=== PATIENT | female | born 1955 | race Caucasian/White ===

== ENCOUNTER → 2016-11-21 | Outpatient (CLI) | payer OTHER ==
[~2016-11-21] MED LIST: ATEN1TAB4 PO; GABA100C PO; GLIM1TAB PO; LISI-556 PO; LORA2TAB PO; TRAM-42 PO
--- NOTE | 2016-11-21 11:00 | Diagnostic Imaging Report ---
INDICATION: Focal upper left arm swelling. DISCUSSION: Limited targeted sonographic evaluation of the soft tissues within the upper left arm in region of swelling was performed. There is no underlying sonographic abnormality such as a mass or abnormal fluid collection identified. No soft tissue edema identified. IMPRESSION: 1. No sonographic abnormality identified within the upper left arm to explain swelling. Dictated by: Dictated on workstation # [id number]
--- NOTE | 2016-11-21 11:39 | Diagnostic Imaging Report ---
INDICATION: Left upper arm mass. 3 views of the left shoulder show no fracture, dislocation, or other acute abnormalities. IMPRESSION: Negative left shoulder. Dictated by: Dictated on workstation # [id number]
== END ==
LOC: RAD 10:01
PROVIDERS: ATTEND Surgery
DX: R22.32 Localized swelling, mass and lump, left upper limb (principal)
CPT/HCPCS: 73030; 76881

== ENCOUNTER 2017-01-25 13:38 | Emergency (ER) | payer SELFPAY ==
[~2017-01-25] VITALS: Ht 149.9 cm; Wt 65.3 kg
[2017-01-25] MEDS ORDERED: RT-ALBUTEROL/IPRATROPIUM 3 ML (DUONEB) VIAL INH ONE (13:45)
[2017-01-25] MEDS ORDERED: methylPREDNISolone 125 MG (Solu-MEDROL) VIAL IVP ONE (13:45)
--- NOTE | 2017-01-25 13:49 | ED General ---
General Stated Complaint: SUICIDAL,DIFFICULTY BREATHING Source of Information: Patient, EMS Exam Limitations: No Limitations History of Present Illness Time Seen by Provider: 13:46 Initial Comments To ER per EMS from home with reports of difficulty breathing. This began one week ago after she overdosed intentionally on her Seroquel. She states the police were called to the house but they drug her back inside and did not call EMS. Since then she's had difficulty swallowing and breathing . Today on scene EMS spent nearly 30 minutes trying to convince the patient to come to the hospital. Ultimately she agreed but during the 30 minute stay she reportedly smoked 3 different cigarettes. She also had "a beer" while she was talking with him. She reports that she's not used any substances other than prescribed for the past week since the initial overdose. patient advises me upon arrival to ER however that she does not want to kill herself and has no intention of doing this. Timing/Duration: 1 Week Severity: Moderate Allergies and Home Medications Allergies Coded Allergies: No Known Drug Allergies (Unverified , 06/18/15) Home Medications Atenolol/Chlorthalidone 1 Each Tablet, 1 EACH PO DAILY, (Reported) Gabapentin 100 Mg Capsule, 100 MG PO TID, (Reported) Glimepiride 1 Mg Tablet, 1 MG PO DAILY, (Reported) Lisinopril 5 Mg Tablet, 5 MG PO DAILY, (Reported) Lorazepam 2 Mg Tablet, 2 MG PO TID, (Reported) Pregabalin 50 Mg Capsule, #90 (Reported) Tramadol HCl 50 Mg Tablet, 50 MG PO Q6H PRN for PAIN, #10 Prescribed by: GENIE GODINEZ on 09/14/15 1225 Constitutional: see HPI EENTM: see HPI Respiratory: no symptoms reported Cardiovascular: no symptoms reported Genitourinary: no symptoms reported Musculoskeletal: no symptoms reported Skin: no symptoms reported Psychiatric/Neurological: No Symptoms Reported Hematologic/Lymphatic: No Symptoms Reported Immunological/Allergic: no symptoms reported Past Ctldsah-Wiyigk-Qssxrp Hx Immunizations Up To Date Tetanus Booster (TDap): Unknown Seasonal Allergies Seasonal Allergies: No Surgeries HX Surgeries: Yes Respiratory Hx Respiratory Disorders: No Cardiovascular Hx Cardiac Disorders: No Neurological Hx Neurological Disorders: Yes Neurological Disorders: Neuropathy Reproductive System Hx Reproductive Disorders: No Genitourinary Hx Genitourinary Disorders: No Gastrointestinal Hx Gastrointestinal Disorders: No Endocrine Endocrine Disorders: Diabetes, Non-Insulin dep HEENT HX ENT Disorders: No Cancer Hx Cancer: No Psychosocial Hx Psychiatric Problems: No Integumentary HX Skin/Integumentary Disorder: No Blood Transfusions Hx Blood Disorders: No Family Medical History Family Medial History: Cardiovascular disease 19 FATHER G8 BROTHER Diabetes mellitus 19 FATHER Hypertension 19 FATHER 19 MOTHER Physical Exam Vital Signs Vital Sign - Last 12Hours 01/25/17 01/25/17 13:38 13:56 Temp 97.0 Pulse 105 Resp 18 B/P (MAP) 144/112 Pulse Ox 97 O2 Delivery Room Air Capillary Refill : General Appearance: No Apparent Distress, WD/WN, Other (chronically ill, appears older than stated age. Very hoarse raspy voice, minimal stridor but speaks constantly and in full sentences. ) Eyes: Bilateral Eye EOMI, Bilateral Eye Normal Inspection, Bilateral Eye PERRL HEENT: PERRL/EOMI, TMs Normal, Pharynx Normal, Other (she is very hoarse) Neck: Full Range of Motion, Normal Inspection Respiratory: Normal Breath Sounds, No Accessory Muscle Use, No Respiratory Distress, Other (she does have a very hoarse voice but talks nearly nonstop in full sentences) Cardiovascular: Regular Rate, Rhythm, Normal Peripheral Pulses Gastrointestinal: Non Tender, Soft Neurologic/Psychiatric: Alert, Oriented x3, Other (adamantly denies suicidal or homicidal thoughts to me. States she just needs something to help her relax. ) Progress/Results/Core Measures Results/Orders Lab Results Laboratory Tests Test 01/25/17 13:53 01/25/17 16:06 Range/Units White Blood Count 7.2 4.3-11.0 10^3/uL Red Blood Count 4.37 4.35-5.85 10^6/uL Hemoglobin 13.8 11.5-16.0 G/DL Hematocrit 41 35-52 % Mean Corpuscular Volume 95 80-99 FL Mean Corpuscular Hemoglobin 32 25-34 PG Mean Corpuscular Hemoglobin Concent 33 32-36 G/DL Red Cell Distribution Width 13.0 10.0-14.5 % Platelet Count 256 130-400 10^3/uL Mean Platelet Volume 9.9 7.4-10.4 FL Neutrophils (%) (Auto) 55 42-75 % Lymphocytes (%) (Auto) 31 12-44 % Monocytes (%) (Auto) 11 0-12 % Eosinophils (%) (Auto) 3 0-10 % Basophils (%) (Auto) 0 0-10 % Neutrophils # (Auto) 4.0 1.8-7.8 X 10^3 Lymphocytes # (Auto) 2.2 1.0-4.0 X 10^3 Monocytes # (Auto) 0.8 0.0-1.0 X 10^3 Eosinophils # (Auto) 0.2 0.0-0.3 10^3/uL Basophils # (Auto) 0.0 0.0-0.1 10^3/uL Sodium Level 139 135-145 MMOL/L Potassium Level 3.8 3.6-5.0 MMOL/L Chloride Level 103 98-107 MMOL/L Carbon Dioxide Level 28 21-32 MMOL/L Anion Gap 8 5-14 MMOL/L Blood Urea Nitrogen 11 7-18 MG/DL Creatinine 0.73 0.60-1.30 MG/DL Estimat Glomerular Filtration Rate > 60 BUN/Creatinine Ratio 15 Glucose Level 119 H 70-105 MG/DL Calcium Level 9.4 8.5-10.1 MG/DL Total Bilirubin 0.3 0.1-1.0 MG/DL Aspartate Amino Transf (AST/SGOT) 36 H 5-34 U/L Alanine Aminotransferase (ALT/SGPT) 47 0-55 U/L Alkaline Phosphatase 105 40-136 U/L Total Protein 7.3 6.4-8.2 GM/DL Albumin 4.1 3.2-4.5 GM/DL Salicylates Level < 5.0 L 5.0-20.0 MG/DL Acetaminophen Level < 10 L 10-30 UG/ML Serum Alcohol 191 H <10 MG/DL Urine Color YELLOW Urine Clarity SLIGHTLY CLOUDY Urine pH 6 5-9 Urine Specific [place] 1.015 L 1.016-1.022 Urine Protein NEGATIVE NEGATIVE Urine Glucose (UA) NEGATIVE NEGATIVE Urine Ketones NEGATIVE NEGATIVE Urine Nitrite NEGATIVE NEGATIVE Urine Bilirubin NEGATIVE NEGATIVE Urine Urobilinogen NORMAL NORMAL MG/DL Urine Leukocyte Esterase NEGATIVE NEGATIVE Urine RBC (Auto) NEGATIVE NEGATIVE Urine RBC NONE /HPF Urine WBC RARE /HPF Urine Squamous Epithelial Cells RARE /HPF Urine Crystals NONE /LPF Urine Bacteria TRACE /HPF Urine Casts NONE /LPF Urine Mucus NEGATIVE /LPF Urine Culture Indicated NO My Orders Orders - GENIE GODINEZ RECREATION WORKER Cbc With Automated Diff (01/25/17 13:45) Alcohol (01/25/17 13:45) Salicylate (01/25/17 13:45) Acetaminophen (01/25/17 13:45) Comprehensive Metabolic Panel (01/25/17 13:45) Albuterol/Ipra Inhalation Soln (Duoneb I (01/25/17 13:45) Methylprednisolone Sod Succ (Solu-Medrol (01/25/17 13:45) Svn Sm Volume Nebulizer Rt-Rfs (01/25/17 13:45) Ua Culture If Indicated (01/25/17 13:45) Drug Screen Stat (Urine) (01/25/17 13:45) Ekg Tracing (01/25/17 13:54) Diphenhydramine Injection (Benadryl Inje (01/25/17 14:00) Ct Neck/Chest W (01/25/17 14:06) Metoprolol Tartrate Injection (Lopressor (01/25/17 14:15) Saline Lock/Iv-Start (01/25/17 14:09) Iohexol Injection (Omnipaque 350 Mg/Ml 1 (01/25/17 14:15) Ns (Ivpb) (Sodium Chloride 0.9% Ivpb Bag (01/25/17 14:15) Iohexol Injection (Omnipaque 350 Mg/Ml 1 (01/25/17 15:00) Sodium Chloride Flush (Catheter Flush Sy (01/25/17 15:00) Ns (Ivpb) (Sodium Chloride 0.9% Ivpb Bag (01/25/17 15:00) Rt Epinephrine (Racemic Epinephrine 2.25 (01/25/17 16:30) Medications Given in ED Current Medications Medications Dose Ordered Sig/Flynn Route Start Time Stop Time Status Last Admin Dose Admin Albuterol/ Ipratropium 3 ml ONCE ONCE INH 01/25/17 13:45 01/25/17 13:46 DC 01/25/17 13:56 3 ML Diphenhydramine HCl 25 mg ONCE ONCE IVP 01/25/17 14:00 01/25/17 14:01 DC 01/25/17 14:06 25 MG Iohexol 100 ml ONCE ONCE IV 01/25/17 14:15 01/25/17 14:16 DC 01/25/17 15:03 100 ML Iohexol 100 ml ONCE ONCE IV 01/25/17 15:00 01/25/17 15:01 DC 01/25/17 15:20 100 ML Methylprednisolone Sodium Succinate 125 mg ONCE ONCE IVP 01/25/17 13:45 01/25/17 13:46 DC 01/25/17 14:06 125 MG Metoprolol Tartrate 5 mg ONCE ONCE IV 01/25/17 14:15 01/25/17 14:16 DC 01/25/17 14:18 5 MG Sodium Chloride 100 ml ONCE ONCE IV 01/25/17 14:15 01/25/17 14:16 DC 01/25/17 15:03 80 ML Vital Signs/I&O Vital Sign - Last 12Hours 01/25/17 01/25/17 01/25/17 13:38 13:56 16:18 Temp 97.0 Pulse 105 72 Resp 18 18 B/P (MAP) 144/112 135/88 Pulse Ox 97 98 O2 Delivery Room Air Room Air Room Air Diagnostic Imaging Diagonstic Imaging: CT Comments NAME: SABRINA [facility] MED REC#: [id number] PT STATUS: REG ER : 1955 PHYSICIAN: GENIE GODINEZ APRN ADMIT DATE: 01/25/17/ER Draft Date of Exam:01/25/17 CT NECK/CHEST W EXAMINATION: CT of the neck and chest performed with intravenous contrast with axial and coronal reconstructions. 100 mL of Omnipaque 350 was administered intravenously. INDICATION: Difficulty breathing. Hoarseness of voice. FINDINGS: CT NECK: There is a lobulated hypodense lesion seen in the subglottic larynx that appear to be pedunculated and attached to the right wall of the subglottic larynx. It is abutting the undersurface of the vocal cords and results in significant narrowing of the airway in the sub-glottic region. It partially bulges into the space between the vocal cords which are perhaps the slightly edematous as well as the false vocal cords. There is no definite enhancement. The measurement of this lesion is 1.2 cm anteroposteriorly x 0.8 cm transversely x 0.7 cm craniocaudally. Differential may include a lymphatic malformation or a polyp based on the low density. Debris, secretions, foreign body or tumor are less likely possibilities. The oropharynx and nasopharynx appear unremarkable. The parotid and submandibular glands appear symmetric. Vascular enhancement in the carotid arteries and jugular veins appear normal. The osseous structures demonstrate degenerative changes in the mid to lower cervical spine. CT CHEST: The lungs demonstrate no significant consolidation or mass. The heart size is normal. No pericardial or pleural effusion. The thoracic aorta is normal in caliber. Remnant of the thymus or mild thymic hyperplasia is suggested in the anterior mediastinum with no other mass or significantly enlarged mediastinal lymph nodes. No lymphadenopathy in the john or axilla. Sections in the upper abdomen appear grossly unremarkable. The osseous structures appear grossly unremarkable. IMPRESSION: 1. CT neck: There is an indeterminate hypodense subglottic hypodense mass which appears to be abutting the right wall of the subglottic larynx and also abutting the undersurface of the vocal cords which appears to be slightly edematous. There is significant narrowing of the airway at this level. ENT evaluation is recommended. The hypodensity may suggest lymphatic malformation, cystic lesion or a polyp. 2. CT chest: No significant abnormality. Genie Godinez, the physician nurses medical assistants phlebotomists taking care of the patient, was called and informed of the findings in the supraglottic larynx. Urgent ENT evaluation is recommended. Dictated on workstation # [id number] Dict: 01/25/17 1542 Trans: 01/25/17 1608 PJ [id number] Interpreted by: ADAM DELONG MD Electronically signed by: Departure Communication Progress Notes 1610-I discussed the case with Dr. Bower who recommends transfer of patient to a tertiary care center. 1629-Dr Felder @ [facility] accepts patient from ENT standpoint to ER. Dr Estes ER physician accepted pt as well. Her BP is down to 135/76. O2 98% room air. Impression Impression: Primary Impression: Laryngeal nodule Disposition: 01 HOME, SELF-CARE Condition: Stable Departure-Patient Inst. Referrals: DEBRA CALDERA MD (PCP) Primary Care Physician GENIE GODINEZ APRN Jan 25, 2017 13:49
[2017-01-25] MEDS ORDERED: diphenhydrAMINE 50 MG/ML INJ (BENADRYL) IVP ONE (14:00)
[2017-01-25 14:02] LABS: BASOPHILS % (AUTO) 0 % (0-10); EOSINOPHILS # (AUTO) 0.2 10^3/uL (0.0-0.3); EOSINOPHILS % (AUTO) 3 % (0-10); LYMPHOCYTES # (AUTO) 2.2 X 10^3 (1.0-4.0); LYMPHOCYTES % (AUTO) 31 % (12-44); MEAN CORPUSCULAR HEMOGLOBIN 32 PG (25-34); MEAN CORPUSCULAR HGB CONC 33 G/DL (32-36); MEAN CORPUSCULAR VOLUME 95 FL (80-99); MEAN PLATELET VOLUME 9.9 FL (7.4-10.4); MONOCYTES # (AUTO) 0.8 X 10^3 (0.0-1.0); MONOCYTES % (AUTO) 11 % (0-12); NEUTROPHILS % (AUTO) 55 % (42-75); PLATELET COUNT 256 10^3/uL (130-400); RED BLOOD COUNT 4.37 10^6/uL (4.35-5.85); WHITE BLOOD COUNT 7.2 10^3/uL (4.3-11.0)
[2017-01-25] MEDS ORDERED: IOHEXOL 350 MG/ML 100 ML (OMNIPAQUE 350) VIAL IV ONE ×2 (14:15→15:00)
[2017-01-25] MEDS ORDERED: meTOprolol 5 MG/5 ML (LOPRESSOR) VIAL IV ONE (14:15)
[2017-01-25] MEDS ORDERED: NS 100 ML (IVPB) BAG IV ONE ×2 (14:15→15:00)
[2017-01-25 14:29] LABS: ALANINE AMINOTRANSFERASE 47 U/L (0-55); ALBUMIN 4.1 GM/DL (3.2-4.5); ALCOHOL 191 MG/DL (<10); ANION GAP 8 MMOL/L (5-14); ASPARTATE AMINO TRANSFERASE 36 U/L (5-34); BILIRUBIN,TOTAL 0.3 MG/DL (0.1-1.0); BLOOD UREA NITROGEN 11 MG/DL (7-18); BUN/CREATININE RATIO 15; CALCIUM 9.4 MG/DL (8.5-10.1); CARBON DIOXIDE 28 MMOL/L (21-32); CHLORIDE 103 MMOL/L (98-107); CREATININE SERUM 0.73 MG/DL (0.60-1.30); GFR ESTIMATED > 60; GLUCOSE 119 MG/DL (70-105); POTASSIUM 3.8 MMOL/L (3.6-5.0); SALICYLATE < 5.0 MG/DL (5.0-20.0); SODIUM 139 MMOL/L (135-145); TOTAL PROTEIN 7.3 GM/DL (6.4-8.2)
[2017-01-25] MEDS ORDERED: PREG50CA2 (14:30)
[2017-01-25 14:38] LABS: ACETAMINOPHEN < 10 UG/ML (10-30)
[2017-01-25] MEDS ORDERED: CATHETER FLUSH 10 ML SYR IV PRN (15:00)
--- NOTE | 2017-01-25 16:08 | Diagnostic Imaging Report ---
EXAMINATION: CT of the neck and chest performed with intravenous contrast with axial and coronal reconstructions. 100 mL of Omnipaque 350 was administered intravenously. INDICATION: Difficulty breathing. Hoarseness of voice. FINDINGS: CT NECK: There is a lobulated hypodense lesion seen in the subglottic larynx that appear to be pedunculated and attached to the right wall of the subglottic larynx. It is abutting the undersurface of the vocal cords and results in significant narrowing of the airway in the sub-glottic region. It partially bulges into the space between the vocal cords which are perhaps the slightly edematous as well as the false vocal cords. There is no definite enhancement. The measurement of this lesion is 1.2 cm anteroposteriorly x 0.8 cm transversely x 0.7 cm craniocaudally. Differential may include a lymphatic malformation or a polyp based on the low density. Debris, secretions, foreign body or tumor are less likely possibilities. The oropharynx and nasopharynx appear unremarkable. The parotid and submandibular glands appear symmetric. Vascular enhancement in the carotid arteries and jugular veins appear normal. The osseous structures demonstrate degenerative changes in the mid to lower cervical spine. CT CHEST: The lungs demonstrate no significant consolidation or mass. The heart size is normal. No pericardial or pleural effusion. The thoracic aorta is normal in caliber. Remnant of the thymus or mild thymic hyperplasia is suggested in the anterior mediastinum with no other mass or significantly enlarged mediastinal lymph nodes. No lymphadenopathy in the john or axilla. Sections in the upper abdomen appear grossly unremarkable. The osseous structures appear grossly unremarkable. IMPRESSION: 1. CT neck: There is an indeterminate hypodense subglottic mass which is abutting the right wall of the subglottic larynx and also abutting the undersurface of the vocal cords, that appear slightly edematous. There is significant narrowing of the airway at this level. ENT evaluation is recommended. The hypodensity may suggest lymphatic malformation, cystic lesion or a polyp. 2. CT chest: No significant abnormality. Maxi Godinez, the physician credit control assistant taking care of the patient, was called and informed of the findings in the subglottic larynx. Urgent ENT evaluation is recommended. Dictated by: Dictated on workstation # [id number]
[2017-01-25 16:16] LABS: BILIRUBIN,URINE NEGATIVE (NEGATIVE); KETONES,URINE NEGATIVE (NEGATIVE); LEUKOCYTE ESTERASE ,URINE NEGATIVE (NEGATIVE); NITRITE,URINE NEGATIVE (NEGATIVE); PH,URINE 6 (5-9); PROTEIN,URINE NEGATIVE (NEGATIVE); UROBILINOGEN,URINE NORMAL (NORMAL)
[2017-01-25 16:18] VITALS: BP 135/88
[2017-01-25 16:23] LABS: WBC,URINE RARE /HPF
[2017-01-25 16:24] LABS: SQUAMOUS EPITHELIAL CELL,UR RARE /HPF
[2017-01-25] MEDS ORDERED: RT-epiNEPHrine (RACEMIC) 2.25% 0.5 ML VIAL INH ONE (16:30)
[2017-01-25 17:14] VITALS: BP 155/54
== END 2017-01-25 17:13 | disposition short-term general hospital (02) ==
LOC: EDUNIT# 13:38 → ER 13:39
DX: J38.7 Other diseases of larynx (principal); E11.42 Type 2 diabetes mellitus with diabetic polyneuropathy; F17.210 Nicotine dependence, cigarettes, uncomplicated
CPT/HCPCS: 36415; 70491; 71260; 80053; 80306; 80320; 80329; 81000; 85025; 93005; 94640; 96374; 96375

== ENCOUNTER 2019-01-14 13:08 | Emergency (ER) | payer SELFPAY ==
[~2019-01-14] VITALS: Ht 149.9 cm; Wt 65.3 kg
[~2019-01-14 13:08] MED LIST changes: +PREG50CA2
--- NOTE | 2019-01-14 13:41 | ED Upper Extremity ---
General Chief Complaint: Upper Extremity Stated Complaint: LT SHOULDER DISLOCATED Nursing Triage Note: PT STATES HAVING A LT SHOULDER DIS-LOCATED SINCE SUNDAY. PT SLIPPED IN HER KITCHEN. PT IN SLING AND SWOTH ON ARRIVAL. STATES NO SLEEP. PT WAS GIVEN A SHOT BUT NO PAIN PILLS. Nursing Sepsis Screen: No Definite Risk Source: patient Exam Limitations: no limitations History of Present Illness Date Seen by Provider: Jan 14, 2019 Time Seen by Provider: 13:40 Initial Comments To ER by private vehicle from [facility] he presented with left shoulder pain after she fell on Sunday01/11/19. She had just mopped her kitchen floor was slick and she fell. X-rays done at [facility] revealed a left shoulder dislocation anteriorly. Onset: just prior to arrival Severity: moderate Pain/Injury Location: left shoulder Method of Injury: fell Modifying Factors: Worse With Movement Allergies and Home Medications Allergies Coded Allergies: No Known Drug Allergies (Unverified , 06/18/15) Home Medications Atenolol/Chlorthalidone 1 Each Tablet, 1 EACH PO DAILY, (Reported) Gabapentin 100 Mg Capsule, 100 MG PO TID, (Reported) Glimepiride 1 Mg Tablet, 1 MG PO DAILY, (Reported) Hydrocodone/Acetaminophen 1 Each Tablet, 1 TAB PO Q4-6HR Prescribed by: GENIE FAIRBANKS on 01/14/19 1357 Lisinopril 5 Mg Tablet, 5 MG PO DAILY, (Reported) Lorazepam 2 Mg Tablet, 2 MG PO TID, (Reported) Tramadol HCl 50 Mg Tablet, 50 MG PO Q6H PRN for PAIN Prescribed by: GENIE FAIRBANKS on 09/14/15 1225 Patient Home Medication List Home Medication List Reviewed: Yes Review of Systems Constitutional: see HPI EENTM: see HPI Respiratory: no symptoms reported Cardiovascular: no symptoms reported Genitourinary: no symptoms reported Musculoskeletal: see HPI Skin: no symptoms reported Psychiatric/Neurological: No Symptoms Reported Past Kfqounj-Ktpdug-Digopu Hx Patient Social History Alcohol Use: Occasionally Uses Recreational Drug Use: No Smoking Status: Current Everyday Smoker Type Used: Cigarettes 2nd Hand Smoke Exposure: Yes Recent Foreign Travel: No Contact w/Someone Who Travel: No Recent Infectious Disease Expo: No Immunizations Up To Date Tetanus Booster (TDap): Unknown Seasonal Allergies Seasonal Allergies: No Past Medical History Surgeries: Yes Respiratory: No Cardiac: No Neurological: Yes Neuropathy Reproductive Disorders: No Gastrointestinal: No Diabetes, Non-Insulin dep Cancer: No Psychosocial: No Integumentary: No Blood Disorders: No Family Medical History Cardiovascular disease 19 FATHER G8 BROTHER Diabetes mellitus 19 FATHER Hypertension 19 FATHER 19 MOTHER Physical Exam Vital Signs Vital Signs - First Documented 01/14/19 13:21 Temp 98.5 Pulse 114 Resp 22 B/P (MAP) 188/123 (144) Pulse Ox 98 O2 Delivery Room Air Capillary Refill : Less Than 3 Seconds Height, Weight, BMI Height: 4'11.00" Weight: 144lbs. oz. 65.778199ny; 28.68 BMI Method:Stated General Appearance: WD/WN, no apparent distress HEENT: PERRL/EOMI, normal ENT inspection Respiratory: no respiratory distress, no accessory muscle use Gastrointestinal: normal bowel sounds, non tender Shoulder: normal inspection, limited ROM (limited abduction. Strong radial pulse. Normal sensation of the fingertips.) Elbow/Forearm: normal inspection, non-tender Wrist: Yes normal inspection, Yes non-tender Neurologic/Psychiatric: alert, normal mood/affect, oriented x 3 Skin: normal color, warm/dry Does have some mild numbness over the deltoid she states. Procedures/Interventions Splinting and Joint Reduction : Pre-Proc Neuro Vasc Exam: normal Post-Proc Neuro Vasc Exam: normal Joint Reduction Site: shoulder (L) Reduction Attempts: 1 Pre-Procedure NV Exam: Yes post joint reduction film: joint reduced Progress She does have films on a disc brought with her from [facility] showing an anterior dislocation of the left shoulder. I have reviewed these prior to starting. Progress/Results/Core Measures Results/Orders My Orders Orders - GENIE FAIRBANKS APRN Ed Iv/Invasive Line Start (01/14/19 13:29) Lactated Ringers (Lr 1000 Ml Iv Solution (01/14/19 13:45) Etomidate Injection (Amidate Injection) (01/14/19 13:45) Fentanyl Injection (Sublimaze Injection (01/14/19 13:45) Shoulder, Left, 1 View (01/14/19 13:32) Medications Given in ED Current Medications Medications Dose Ordered Sig/Flynn Route Start Time Stop Time Status Last Admin Dose Admin Etomidate 20 mg ONCE ONCE IV 01/14/19 13:45 01/14/19 13:46 DC 01/14/19 13:49 20 MG Fentanyl Citrate 50 mcg ONCE ONCE IVP 01/14/19 13:45 01/14/19 13:46 DC 01/14/19 13:48 50 MCG Vital Signs/I&O 01/14/19 13:21 Temp 98.5 Pulse 114 Resp 22 B/P (MAP) 188/123 (144) Pulse Ox 98 O2 Delivery Room Air Blood Pressure Mean: 144 Departure Communication (Admissions) 1356-patient was given 50 g of fentanyl IV, 20 mg of etomidate IV. The shoulder was then very easily reduced. X-rays to confirm placement. She'll then be placed in a shoulder immobilizer and discharged home once she awakens. At this time she still snoring with stable vital signs on 2 L of supplemental oxygen. Impression Primary Impression: Dislocation of left shoulder joint Qualified Codes: S43.005A - Unspecified dislocation of left shoulder joint, initial encounter Disposition: HOME, SELF-CARE Condition: Stable Departure-Patient Inst. Decision time for Depature: 13:56 Referrals: DEBRA CALDERA MD (PCP) Primary Care Physician Patient Instructions: Shoulder Dislocation Add. Discharge Instructions: 1. Wear the immobilizer at all times except when showering for the next 1 week. Follow-up with [facility] for referral to orthopedics. Take the pain medication as directed. Return to ER for any concerns. All discharge instructions reviewed with patient and/or family. Voiced understanding. Scripts Hydrocodone/Acetaminophen ([place] 5-325 Tablet) 1 Each Tablet 1 TAB PO Q4-6HR for Pain MDD 10 TABS for 7 Days, #10 TAB Prov: GENIE FAIRBANKS APRN 01/14/19 GENIE FAIRBANKS APRN Jan 14, 2019 13:41
[2019-01-14] MEDS ORDERED: fentaNYL INJECTION 100 MCG/2 ML AMP IVP ONE (13:45)
[2019-01-14] MEDS ORDERED: ETOMIDATE IV SOLN 20 MG/10 ML VIAL IV ONE (13:45)
[2019-01-14] MEDS ORDERED: LACTATED RINGERS 1,000 ML IV SCH (13:45)
[2019-01-14] MEDS ORDERED: HYDR-4226 PO (13:57)
--- NOTE | 2019-01-14 14:13 | Diagnostic Imaging Report ---
INDICATION: Left shoulder dislocation. TIME OF EXAM: 01:58 p.m. FINDINGS: Single view of the left shoulder was obtained. Glenohumeral and acromioclavicular alignment appears normal. No fracture or dislocation is seen on this single view. IMPRESSION: No acute abnormality detected. Dictated by: Dictated on workstation # [id number]
[2019-01-14 16:49] VITALS: BP 177/87
== END 2019-01-14 14:36 | disposition home or self-care (01) ==
LOC: EDUNIT# 13:08 → ER 13:11
DX: S43.005A Unspecified dislocation of left shoulder joint, initial encounter (principal); E11.40 Type 2 diabetes mellitus with diabetic neuropathy, unspecified; F17.210 Nicotine dependence, cigarettes, uncomplicated; Z79.84 Long term (current) use of oral hypoglycemic drugs; Z82.49 Family history of ischemic heart disease and other diseases of the circulatory system; W01.0XXA Fall on same level from slipping, tripping and stumbling without subsequent striking against object, initial encounter; Y92.000 Kitchen of unspecified non-institutional (private) residence as the place of occurrence of the external cause
CPT/HCPCS: 73020; 96360

== ENCOUNTER 2019-04-10 14:24 | Emergency (ER) | payer OTHER ==
[~2019-04-10] VITALS: Ht 148.9 cm; Wt 65.5 kg
[~2019-04-10 14:24] MED LIST changes: +HYDR-4226 PO
--- NOTE | 2019-04-10 14:54 | ED General ---
General Stated Complaint: HIGH BP Source of Information: Patient Exam Limitations: No Limitations History of Present Illness Date Seen by Provider: Apr 10, 2019 Time Seen by Provider: 14:53 Initial Comments To ER per private vehicle with reports of high blood pressure and intermittent chest pain for the past 2-3 days, she stopped taking her lorazepam about a week ago. She feels very anxious and hasn't slept since. The pain is described as shooting pains lasting only a few seconds originating in the epigastric region and up into the right side of her chest. She cannot identify anything other than anxiety that seems to be contributing to these pains, no alleviating or exacerbating factors.She is not short of breath Allergies and Home Medications Allergies Coded Allergies: No Known Drug Allergies (Unverified , 06/18/15) Home Medications Atenolol/Chlorthalidone 1 Each Tablet, 1 EACH PO DAILY, (Reported) Gabapentin 100 Mg Capsule, 100 MG PO TID, (Reported) Glimepiride 1 Mg Tablet, 1 MG PO DAILY, (Reported) Hydrocodone/Acetaminophen 1 Each Tablet, 1 TAB PO Q4-6HR Prescribed by: GENIE FAIRBANKS on 01/14/19 1357 Hydroxyzine Pamoate 50 Mg Capsule, 50 MG PO TID PRN for ANXIETY Prescribed by: GENIE FAIRBANKS on 04/10/19 1614 Lisinopril 5 Mg Tablet, 5 MG PO DAILY, (Reported) Lorazepam 2 Mg Tablet, 2 MG PO TID, (Reported) Tramadol HCl 50 Mg Tablet, 50 MG PO Q6H PRN for PAIN Prescribed by: GENIE FAIRBANKS on 09/14/15 1225 Patient Home Medication List Home Medication List Reviewed: Yes Review of Systems Review of Systems Constitutional: see HPI EENTM: see HPI Respiratory: see HPI Cardiovascular: see HPI, chest pain Genitourinary: no symptoms reported Musculoskeletal: no symptoms reported Skin: no symptoms reported Psychiatric/Neurological: No Symptoms Reported Hematologic/Lymphatic: No Symptoms Reported Past Ybxdytk-Rsahoa-Kvdbbj Hx Patient Social History Type Used: Cigarettes 2nd Hand Smoke Exposure: Yes Immunizations Up To Date Tetanus Booster (TDap): Unknown Seasonal Allergies Seasonal Allergies: No Past Medical History Surgeries: Yes Respiratory: No Cardiac: No Neurological: Yes Neuropathy Reproductive Disorders: No Gastrointestinal: No Diabetes, Non-Insulin dep Cancer: No Psychosocial: No Integumentary: No Blood Disorders: No Family Medical History Cardiovascular disease 19 FATHER G8 BROTHER Diabetes mellitus 19 FATHER Hypertension 19 FATHER 19 MOTHER Physical Exam Vital Signs Vital Signs - First Documented 04/10/19 04/10/19 14:28 16:47 Temp 36.0 Pulse 70 Resp 18 B/P (MAP) 191/107 (135) Pulse Ox 95 O2 Delivery Room Air Capillary Refill : Height, Weight, BMI Height: 4'11.00" Weight: 144lbs. oz. 65.251902vd; 28.68 BMI Method:Stated General Appearance: No Apparent Distress, WD/WN, Anxious Eyes: Bilateral Eye Normal Inspection, Bilateral Eye PERRL, Bilateral Eye EOMI HEENT: Normal ENT Inspection Neck: Full Range of Motion, Normal Inspection Respiratory: Normal Breath Sounds, No Accessory Muscle Use, No Respiratory Distress Cardiovascular: Regular Rate, Rhythm, Normal Peripheral Pulses Gastrointestinal: Normal Bowel Sounds, Non Tender, Soft Extremity: Normal Capillary Refill, Normal Inspection Neurologic/Psychiatric: Alert, Oriented x3 Skin: Normal Color, Warm/Dry Progress/Results/Core Measures Suspected Sepsis SIRS Temperature: Pulse: Respiratory Rate: Laboratory Tests 04/10/19 15:00: White Blood Count 8.3 Blood Pressure / Mean: Laboratory Tests 04/10/19 15:00: Creatinine 0.74, INR Comment 0.9, Platelet Count 267, Total Bilirubin 0.3 Results/Orders Lab Results Laboratory Tests Test 04/10/19 15:00 Range/Units White Blood Count 8.3 4.3-11.0 10^3/uL Red Blood Count 4.46 4.35-5.85 10^6/uL Hemoglobin 14.1 11.5-16.0 G/DL Hematocrit 41 35-52 % Mean Corpuscular Volume 92 80-99 FL Mean Corpuscular Hemoglobin 32 25-34 PG Mean Corpuscular Hemoglobin Concent 34 32-36 G/DL Red Cell Distribution Width 12.8 10.0-14.5 % Platelet Count 267 130-400 10^3/uL Mean Platelet Volume 9.8 7.4-10.4 FL Neutrophils (%) (Auto) 63 42-75 % Lymphocytes (%) (Auto) 25 12-44 % Monocytes (%) (Auto) 9 0-12 % Eosinophils (%) (Auto) 4 0-10 % Basophils (%) (Auto) 1 0-10 % Neutrophils # (Auto) 5.2 1.8-7.8 X 10^3 Lymphocytes # (Auto) 2.0 1.0-4.0 X 10^3 Monocytes # (Auto) 0.7 0.0-1.0 X 10^3 Eosinophils # (Auto) 0.3 0.0-0.3 10^3/uL Basophils # (Auto) 0.1 0.0-0.1 10^3/uL Prothrombin Time 12.3 12.2-14.7 SEC INR Comment 0.9 0.8-1.4 Activated Partial Thromboplast Time 29 24-35 SEC D-Dimer 0.67 H 0.00-0.49 UG/ML Sodium Level 140 135-145 MMOL/L Potassium Level 3.8 3.6-5.0 MMOL/L Chloride Level 103 98-107 MMOL/L Carbon Dioxide Level 31 21-32 MMOL/L Anion Gap 6 5-14 MMOL/L Blood Urea Nitrogen 7 7-18 MG/DL Creatinine 0.74 0.60-1.30 MG/DL Estimat Glomerular Filtration Rate > 60 BUN/Creatinine Ratio 9 Glucose Level 123 H 70-105 MG/DL Calcium Level 9.1 8.5-10.1 MG/DL Corrected Calcium 9.0 8.5-10.1 MG/DL Magnesium Level 2.1 1.6-2.4 MG/DL Total Bilirubin 0.3 0.1-1.0 MG/DL Aspartate Amino Transf (AST/SGOT) 28 5-34 U/L Alanine Aminotransferase (ALT/SGPT) 35 0-55 U/L Alkaline Phosphatase 110 40-136 U/L Myoglobin 24.6 10.0-92.0 NG/ML Troponin I < 0.028 <0.028 NG/ML B-Type Natriuretic Peptide 116.5 H <100.0 PG/ML Total Protein 7.2 6.4-8.2 GM/DL Albumin 4.1 3.2-4.5 GM/DL Lipase 8 8-78 U/L My Orders Orders - GENIE FAIRBANKS APRN Cbc With Automated Diff (04/10/19 14:47) Magnesium (04/10/19 14:47) Chest 1 View, Ap/Pa Only (04/10/19 14:47) Ekg Tracing (04/10/19 14:47) Cardiac Profile 1 (04/10/19 14:47) Comprehensive Metabolic Panel (04/10/19 14:47) Myoglobin Serum (04/10/19 14:47) Protime With Inr (04/10/19 14:47) Partial Thromboplastin Time (04/10/19 14:47) O2 (04/10/19 14:47) Monitor-Rhythm Ecg Trace Only (04/10/19 14:47) Ed Iv/Invasive Line Start (04/10/19 14:47) Lipase (04/10/19 14:47) BNP (04/10/19 14:47) Aspirin Chewable Tablet (Baby Aspirin Ch (04/10/19 15:00) Lorazepam Injection (Ativan Injection) (04/10/19 15:00) Fibrin Degradation Products (04/10/19 15:28) Medications Given in ED Vital Signs/I&O Capillary Refill : Departure Communication (Admissions) 2556-just d-dimer is normal, feeling better. Impression Primary Impression: Anxiety Additional Impression: Chest pain Qualified Codes: R07.9 - Chest pain, unspecified Disposition: HOME, SELF-CARE Condition: Improved Departure-Patient Inst. Decision time for Depature: 16:12 Referrals: DEBRA CALDERA MD (PCP) Primary Care Physician NATANAEL EDOUARD MD FACP FACC CCDS Teresa CERVANTES MD, BASHAR J MD Patient Instructions: Chest Pain (DC) Add. Discharge Instructions: 1. Call a gaming department head of your choosing next week to make an appointment to be seen for follow-up. Return to ER for any concerns in the meantime. Scripts Hydroxyzine Pamoate (Vistaril) 50 Mg Capsule 50 MG PO TID PRN for ANXIETY, #10 CAP Prov: GENIE FAIRBANKS RENEWABLE ENERGY TECHNICIAN 04/10/19 GENIE FAIRBANKS RENEWABLE ENERGY TECHNICIAN Apr 10, 2019 14:54
[2019-04-10] MEDS ORDERED: ASPIRIN 81 MG CHEW (CHILDREN'S ASA) PO ONE (15:00)
[2019-04-10] MEDS ORDERED: LORazepam INJ 2 MG/ML (ATIVAN) VIAL IVP PRN (15:00)
[2019-04-10 15:04] LABS: BASOPHILS # (AUTO) 0.1 10^3/uL (0.0-0.1); BASOPHILS % (AUTO) 1 % (0-10); EOSINOPHILS # (AUTO) 0.3 10^3/uL (0.0-0.3); EOSINOPHILS % (AUTO) 4 % (0-10); HEMATOCRIT 41 % (35-52); HEMOGLOBIN 14.1 G/DL (11.5-16.0); LYMPHOCYTES % (AUTO) 25 % (12-44); MEAN CORPUSCULAR HEMOGLOBIN 32 PG (25-34); MEAN CORPUSCULAR HGB CONC 34 G/DL (32-36); MEAN CORPUSCULAR VOLUME 92 FL (80-99); MEAN PLATELET VOLUME 9.8 FL (7.4-10.4); MONOCYTES # (AUTO) 0.7 X 10^3 (0.0-1.0); MONOCYTES % (AUTO) 9 % (0-12); NEUTROPHILS # (AUTO) 5.2 X 10^3 (1.8-7.8); NEUTROPHILS % (AUTO) 63 % (42-75); PLATELET COUNT 267 10^3/uL (130-400); RED CELL DISTRIBUTION WIDTH 12.8 % (10.0-14.5); WHITE BLOOD COUNT 8.3 10^3/uL (4.3-11.0)
[2019-04-10 15:18] LABS: INR 0.9 (0.8-1.4); PROTHROMBIN TIME PATIENT 12.3 SEC (12.2-14.7)
[2019-04-10 15:24] LABS: ALANINE AMINOTRANSFERASE 35 U/L (0-55); ALBUMIN 4.1 GM/DL (3.2-4.5); ALKALINE PHOSPHATASE 110 U/L (40-136); BILIRUBIN,TOTAL 0.3 MG/DL (0.1-1.0); BUN/CREATININE RATIO 9; CALCIUM 9.1 MG/DL (8.5-10.1); CARBON DIOXIDE 31 MMOL/L (21-32); CHLORIDE 103 MMOL/L (98-107); CREATININE SERUM 0.74 MG/DL (0.60-1.30); GFR ESTIMATED > 60; GLUCOSE 123 MG/DL (70-105); LIPASE 8 U/L (8-78); MAGNESIUM 2.1 MG/DL (1.6-2.4); POTASSIUM 3.8 MMOL/L (3.6-5.0); SODIUM 140 MMOL/L (135-145); TOTAL PROTEIN 7.2 GM/DL (6.4-8.2)
--- NOTE | 2019-04-10 15:58 | Diagnostic Imaging Report ---
INDICATION: Chest pain. COMPARISON: None. FINDINGS: Single frontal view of the chest demonstrates normal heart size and pulmonary vascularity. The lungs are well aerated and clear. No large pleural effusion or pneumothorax is seen. The visualized osseous structures show no acute abnormalities. IMPRESSION: 1. No acute cardiopulmonary process. Dictated by: Dictated on workstation # [id number]
[2019-04-10] MEDS ORDERED: HYDR50CA PO (16:14)
[2019-04-10 16:47] VITALS: BP 107/67
== END 2019-04-10 16:47 | disposition home or self-care (01) ==
LOC: EDUNIT# 14:24 → ER 14:26
DX: F41.9 Anxiety disorder, unspecified (principal); R07.9 Chest pain, unspecified; E11.40 Type 2 diabetes mellitus with diabetic neuropathy, unspecified; Z77.22 Contact with and (suspected) exposure to environmental tobacco smoke (acute) (chronic); Z82.49 Family history of ischemic heart disease and other diseases of the circulatory system
CPT/HCPCS: 36415; 71045; 80053; 83690; 83735; 83874; 83880; 84484; 85025; 85379; 85610; 85730; 93005; 93041

== ENCOUNTER 2019-05-27 20:58 | Emergency (ER) | payer SELFPAY ==
[~2019-05-27] VITALS: Ht 148.9 cm; Wt 65.5 kg
[~2019-05-27 20:58] MED LIST changes: +HYDR50CA PO
[2019-05-27] MEDS ORDERED: TETANUS,DIPTH,PERTUSS P/F (BOOSTRIX) 0.5 ML VIAL IM ONE (21:15)
[2019-05-27] MEDS ORDERED: LIDOCAINE 1% INJ 20 ML 20 ML VIAL INJ ONE (21:15)
[2019-05-27] MEDS ORDERED: SULF1TAB35 PO ×2 (21:20→22:26)
--- NOTE | 2019-05-27 21:20 | ED Integumentary General ---
General Stated Complaint: RT HAND LAC Source: patient Exam Limitations: intoxication (mild-mod etoh) History of Present Illness Date Seen by Provider: May 27, 2019 Time Seen by Provider: 21:05 Initial Comments Patient presents to ER by private conveyance with chief complaint of having cut her hand with a knife tonight. She has been drinking beer tonight. She called EMS came out and rest her hand but she refused transport and decided to come in on her own. Her significant other drove her here. She thinks is been more than 5 years since she had a tetanus vaccination. Allergies and Home Medications Allergies Coded Allergies: No Known Drug Allergies (Unverified , 06/18/15) Home Medications Atenolol/Chlorthalidone 1 Each Tablet, 1 EACH PO DAILY, (Reported) Gabapentin 100 Mg Capsule, 100 MG PO TID, (Reported) Glimepiride 1 Mg Tablet, 1 MG PO DAILY, (Reported) Hydrocodone/Acetaminophen 1 Each Tablet, 1 TAB PO Q4-6HR Prescribed by: GENIE FAIRBANKS on 01/14/19 1357 Hydroxyzine Pamoate 50 Mg Capsule, 50 MG PO TID PRN for ANXIETY Prescribed by: GENIE FAIRBANKS on 04/10/19 1614 Lisinopril 5 Mg Tablet, 5 MG PO DAILY, (Reported) Lorazepam 2 Mg Tablet, 2 MG PO TID, (Reported) Tramadol HCl 50 Mg Tablet, 50 MG PO Q6H PRN for PAIN Prescribed by: GENIE FAIRBANKS on 09/14/15 1225 Patient Home Medication List Home Medication List Reviewed: Yes Review of Systems Review of Systems Constitutional: No chills, No fever EENTM: No hearing loss, No ear pain Respiratory: No cough, No dyspnea on exertion Cardiovascular: No chest pain, No palpitations Gastrointestinal: No abdominal pain, No nausea Genitourinary: No discharge, No dysuria Musculoskeletal: No back pain, No joint pain Skin: see HPI All Other Systems Reviewed Negative Unless Noted: Yes Past Mjpbbkf-Eyrymz-Aysynq Hx Patient Social History Alcohol Use: Occasionally Uses Alcohol Beverage of Choice: Beer Recreational Drug Use: No Smoking Status: Current Everyday Smoker Type Used: Cigarettes 2nd Hand Smoke Exposure: Yes Recent Foreign Travel: No Contact w/Someone Who Travel: No Immunizations Up To Date Tetanus Booster (TDap): Unknown Seasonal Allergies Seasonal Allergies: No Past Medical History Surgeries: Yes Respiratory: No Cardiac: No Neurological: Yes Neuropathy Reproductive Disorders: No Gastrointestinal: No Diabetes, Non-Insulin dep Cancer: No Psychosocial: No Integumentary: No Blood Disorders: No Family Medical History Cardiovascular disease 19 FATHER G8 BROTHER Diabetes mellitus 19 FATHER Hypertension 19 FATHER 19 MOTHER Physical Exam Vital Signs Vital Signs - First Documented 05/27/19 21:02 Temp 36.6 Pulse 76 Resp 18 B/P (MAP) 179/97 (124) Pulse Ox 99 O2 Delivery Room Air Capillary Refill : General Appearance: WD/WN, no apparent distress HEENT: PERRL/EOMI, pharynx normal Neck: non-tender, normal inspection Cardiovascular: normal peripheral pulses, regular rate, rhythm Respiratory: no respiratory distress, no accessory muscle use Extremities: other (she lacks any flexion in her fifth digit. Normal range of motion of her other fingers of the right hand.) Neurologic/Psychiatric: no motor/sensory deficits, alert, normal mood/affect, other (moderately intoxicated but normal gait) Skin: other (to similar laceration over the palmar side of the fourth finger interphalangeal joint and fifth palmar side finger about one half to 2 cm long.) Procedures/Interventions Wound Location: Upper Extremities Other Wound Location Fourth and fifth finger Wound's Depth, Shape: linear, sub Q, tendon (1500) Wound Explored: no foreign body removed Irrigated w/ Saline (ccs): 200 Betadine Prep?: Yes (chlorhexidine) Anesthesia: 1% Lidocaine Volume Anesthetic (ccs): 6 Wound Debrided: minimal Suture: Prolene Suture Size: 5-0 Number of Sutures: 7 Progress Hands were thoroughly cleaned and draped out and using sterile technique. Injected the fourth and fifth digits with a digital block. Wounds were infiltrat ed with lidocaine as well. There were then cleaned thoroughly using sterile saline. We then reapproximated skin and put four sutures in the fourth finger and 3 in the fifth finger. Wounds were hemostatic and patient tolerates procedure well. Progress/Results/Core Measures Results/Orders My Orders Orders - JITENDRA STRAUSS Lidocaine 1% Inj 20 Ml (Xylocaine 1% Inj (05/27/19 21:15) Finger(S) (05/27/19 21:13) Dipht,Pertuss(Acell),Tet Adult (Boostrix (05/27/19 21:15) Ketorolac Injection (Toradol Injection) (05/27/19 22:30) Medications Given in ED Current Medications Medications Dose Ordered Sig/Flynn Route Start Time Stop Time Status Last Admin Dose Admin Diphtheria/ Tetanus/Acell Pertussis 0.5 ml ONCE ONCE IM 05/27/19 21:15 05/27/19 21:16 DC 05/27/19 21:31 0.5 ML Lidocaine HCl 20 ml ONCE ONCE INJ 05/27/19 21:15 05/27/19 21:16 DC 05/27/19 21:31 20 ML Vital Signs/I&O 05/27/19 21:02 Temp 36.6 Pulse 76 Resp 18 B/P (MAP) 179/97 (124) Pulse Ox 99 O2 Delivery Room Air Progress Progress Note : Time: 21:17 Progress Note X-ray right hand. We'll close the skin but she'll need to follow-up with a hand surgeon for her fifth finger. Tetanus vaccination. Diagnostic Imaging Diagonstic Imaging: Xray Plain Films/CT/US/NM/MRI: hand (right fingers) Comments NAME: SABRINA [facility] MED REC#: [id number] PT STATUS: REG ER : 1955 PHYSICIAN: JITENDRA STRAUSS MD ADMIT DATE: 05/27/19/ER Draft POSDate of Exam:05/27/19 FINGER(S) INDICATION: Laceration to the little and ring fingers TECHNIQUE: 4 views of the right hand and fingers CORRELATION STUDY: None FINDINGS: The proximal phalanx ring finger is largely obscured. No definitive evidence for acute bony abnormality with attention to the little and ring fingers. There are advanced degenerative changes with some narrowing at the interphalangeal joints diffusely. Contour deformity soft tissue defects at the 4th and 5th digits. No definitive soft tissue foreign body. IMPRESSION: 1. Negative for acute bony abnormality of the right hand with attention to the 4th and 5th fingers. Dictated on workstation # [id number] Dict: 05/27/[id number] Trans: 05/27/192155 [facility] [id number] Interpreted by: MARKELL ALFONSO DO Electronically signed by: Reviewed: Reviewed by Me Departure Impression Primary Impression: Laceration of hand with tendon involvement including fingers Qualified Codes: S61.411A - Laceration without foreign body of right hand, initial encounter; S61.219A - Laceration without foreign body of unspecified finger without damage to nail, initial encounter; S66.921A - Laceration of unspecified muscle, fascia and tendon at wrist and hand level, right hand, initial encounter Disposition: 01 HOME, SELF-CARE Condition: Improved Departure-Patient Inst. Decision time for Depature: 22:25 Referrals: DEBRA CALDERA MD (PCP/Family) Primary Care Physician LETICIA HANCOCK MD Patient Instructions: Laceration Repair With Stitches (DC) Add. Discharge Instructions: Keep the wound clean with regular soap and water. You may apply a thin layer of Vaseline and gauze dressing to be changed daily or as often as it becomes soiled. Tomorrow call Dr. Hanocck and request follow-up for your hand laceration. Take the antibiotics 1 tablet twice a day with food for the next 5 days to prevent infection. Scripts Sulfamethoxazole/Trimethoprim (Bactrim Ds Tablet) 1 Each Tablet 1 EACH PO BID for 5 Days, #10 TAB 0 Refills Prov: JITENDRA STRAUSS 05/27/19 Copy Copies To 1: LETICIA HANCOCK MD, TITUS J May 27, 2019 21:19 POS
--- NOTE | 2019-05-27 21:56 | Diagnostic Imaging Report ---
INDICATION: Laceration to the little and ring fingers TECHNIQUE: 4 views of the right hand and fingers CORRELATION STUDY: None FINDINGS: The proximal phalanx ring finger is largely obscured. No definitive evidence for acute bony abnormality with attention to the little and ring fingers. There are advanced degenerative changes with some narrowing at the interphalangeal joints diffusely. Contour deformity soft tissue defects at the 4th and 5th digits. No definitive soft tissue foreign body. IMPRESSION: 1. Negative for acute bony abnormality of the right hand with attention to the 4th and 5th fingers. Dictated by: Dictated on workstation # [id number]
[2019-05-27] MEDS ORDERED: KETOROLAC 60 MG/2 ML VIAL IM ONE (22:30)
[2019-05-27 22:33] VITALS: BP 165/91
== END 2019-05-27 22:32 | disposition home or self-care (01) ==
LOC: EDUNIT# 20:58 → ER 20:59
DX: S61.214A Laceration without foreign body of right ring finger without damage to nail, initial encounter (principal); S61.216A Laceration without foreign body of right little finger without damage to nail, initial encounter; E11.40 Type 2 diabetes mellitus with diabetic neuropathy, unspecified; F17.210 Nicotine dependence, cigarettes, uncomplicated; Z23 Encounter for immunization; Z82.49 Family history of ischemic heart disease and other diseases of the circulatory system; W26.0XXA Contact with knife, initial encounter
CPT/HCPCS: 12001; 73140; 90471; 90715; 96372

== ENCOUNTER 2022-08-14 21:57 | Emergency (ER) | payer MEDICARE ==
[~2022-08-14] VITALS: Ht 149.8 cm; Wt 63.5 kg
[~2022-08-14 21:57] MED LIST changes: -GLIM1TAB PO; +GLIM1TAB4 PO; -LISI-556 PO; +LISI5TAB20 PO; +SULF1TAB38 PO
--- NOTE | 2022-08-14 22:28 | ED General ---
General Chief Complaint: Cardiac/General Problems Stated Complaint: HIGH BLOOD PRESSURE Nursing Triage Note: PT TO RM 3 BY EMS WITH CC OF HIGH BLOOD PRESSURE. EMS REPORTS PT WENT OVER TO NEIGHBORS HOUSE TO TAKE HER BP AND BECAUSE SHE WAS MAD AT HER . EMS REPORTS PT HAD BEEN DRINKING THIS PM. ALSO NOTED PT L FOOT IS DUSKY. PT STATES "MY FEET ARE ALWAYS LIKE THAT, THEY ARE ALWAYS COLD." Source of Information: Patient Exam Limitations: No Limitations History of Present Illness Date Seen by Provider: Aug 14, 2022 Time Seen by Provider: 22:14 Initial Comments This 67-year-old woman presents to the emergency room via EMS with primary complaint of uncontrolled blood pressure. Indeed her systolic blood pressure is quite high, in the 200s. She reports normally taking atenolol. She did not take her atenolol tonight because of difficulty ambulating with lower extremity pain. Her significant other would not go to the other room to get her blood pressure medications for her, so she contacted her neighbors to help her. She is a difficult historian and it is difficult to sort through her complaints to understand what is happening and why she came to the emergency room. Blood pressure is trending down during her assessment. Patient does seem very fidgety and has a dystonic movements consistent with substance abuse. Patient denies drinking alcohol today and denies regular alcohol consumption. She denies any other drug use. Notes that after a urine drug screen tested positive for methamphetamine, she did admit to methamphetamine use. There was immediate concern about cyanotic appearing left foot and cool feet bilaterally with no palpable pulses. Patient reports that this is chronic and unchanged. Allergies and Home Medications Allergies Coded Allergies: No Known Drug Allergies (Unverified , 06/18/15) Patient Home Medication List Home Medication List Reviewed: Yes Atenolol/Chlorthalidone (Atenolol-Chlorthalidone 100-25) 1 Each Tablet, 1 EACH PO DAILY, (Reported) Entered as Reported by: PRO BARRERA on 09/14/15 1138 Cephalexin (Cephalexin) 500 Mg Tablet, 500 MG PO TID Prescribed by: NICHOL WOODS on 08/15/22 0532 Gabapentin (Neurontin) 100 Mg Capsule, 100 MG PO TID, (Reported) Entered as Reported by: PRO BARRERA on 09/14/15 1138 Glimepiride (Glimepiride) 1 Mg Tablet, 1 MG PO DAILY, (Reported) Entered as Reported by: PRO BARRERA on 09/14/15 1138 Hydrocodone/Acetaminophen (Hydrocodone/Acetaminophen 5 MG/325 MG TAB) 1 Each Tablet, 1 TAB PO Q4-6HR Prescribed by: GENIE FAIRBANKS on 01/14/19 1357 Hydroxyzine Pamoate (Vistaril) 50 Mg Capsule, 50 MG PO TID PRN for ANXIETY Prescribed by: GENIE FAIRBANKS on 04/10/19 1614 Lisinopril (Lisinopril) 5 Mg Tablet, 5 MG PO DAILY, (Reported) Entered as Reported by: PRO BARRERA on 09/14/15 1138 Lorazepam (Lorazepam) 2 Mg Tablet, 2 MG PO TID, (Reported) Entered as Reported by: PRO BARRERA on 09/14/15 1138 Pregabalin (Lyrica) 50 Mg Capsule, (Reported) Entered as Reported by: ASHLEY KEVIN on 01/25/17 1430 Sulfamethoxazole/Trimethoprim (Bactrim Ds Tablet) 1 Each Tablet, 1 EACH PO BID Prescribed by: JITENDRA STRAUSS on 05/27/19 2226 Tramadol HCl (Ultram) 50 Mg Tablet, 50 MG PO Q6H PRN for PAIN Prescribed by: GENEI FAIRBANKS on 09/14/15 1225 Review of Systems Review of Systems Constitutional: no symptoms reported EENTM: no symptoms reported Respiratory: no symptoms reported Cardiovascular: see HPI Gastrointestinal: no symptoms reported Musculoskeletal: no symptoms reported Skin: no symptoms reported Psychiatric/Neurological: See HPI Hematologic/Lymphatic: No Symptoms Reported Immunological/Allergic: no symptoms reported Past Ybuhruu-Axdhvf-Gpijro Hx Patient Social History Tobacco Use?: Yes Tobacco type used: Cigarettes Smoking Status: Current Everyday Smoker Substance use?: Yes Substance type: Methamphetamine Alcohol Use?: Yes Alcohol type: Other Alcohol Frequency: Couple times a week Pt feels they are or have been: No Immunizations Up To Date Tetanus Booster (TDap): Unknown Seasonal Allergies Seasonal Allergies: No Past Medical History Surgery/Hospitalization HX: HTN Surgeries: No Respiratory: Yes COPD Cardiac: Yes Angina, High Cholesterol, Hypertension Neurological: Yes Neuropathy Reproductive Disorders: No CONFIGURATION DEVELOPER History: Menopausal Genitourinary: No Gastrointestinal: No Musculoskeletal: Yes (neuropathy) Endocrine: Yes Diabetes, Non-Insulin dep HEENT: No Cancer: No Psychosocial: Yes Anxiety Integumentary: No Blood Disorders: No Family Medical History Cardiovascular disease 19 FATHER G8 BROTHER Diabetes mellitus 19 FATHER Hypertension 19 FATHER 19 MOTHER Physical Exam Vital Signs Vital Signs - First Documented 08/14/22 21:59 Temp 36.5 Pulse 98 Resp 22 B/P (MAP) 185/168 (174) Pulse Ox 98 O2 Delivery Room Air Capillary Refill : Less Than 3 Seconds Height, Weight, BMI Height: 4'11.00" Weight: 144lbs. oz. 65.990753pc; 28.00 BMI Method:Stated General Appearance: WD/WN, Other (Fidgety with pervasive and persistent dystonic movements) HEENT: PERRL/EOMI, Normal ENT Inspection Neck: Normal Inspection Respiratory: Lungs Clear, Normal Breath Sounds, No Accessory Muscle Use Cardiovascular: Regular Rate, Rhythm, No Edema, No Murmur Gastrointestinal: Non Tender, Soft Extremity: Other (Both lower extremities are cool to the touch. Capillary refill is sluggish, about 5 or 6 seconds. Left foot is dusky. Pedal pulses are not palpable but posterior pedal pulses are heard with Doppler bilaterally.) Neurologic/Psychiatric: Alert, No Motor/Sensory Deficits, Other (Distracted and difficult historian consistent with methamphetamine use. Dystonic movements noted.) Skin: Normal Color, Warm/Dry Procedures/Interventions Suture Size: 5-0 Progress/Results/Core Measures Suspected Sepsis SIRS Temperature: Pulse: 98 Respiratory Rate: 22 Laboratory Tests 08/14/22 22:00: White Blood Count 11.2H Blood Pressure 185 /168 Mean: 174 Laboratory Tests 08/14/22 22:00: Platelet Count 307 08/14/22 22:20: Creatinine 0.91, INR Comment 0.9, Total Bilirubin 0.8 Results/Orders Lab Results Laboratory Tests Test 08/14/22 22:00 08/14/22 22:20 08/15/22 04:21 Range/Units White Blood Count 11.2 H 4.3-11.0 10^3/uL Red Blood Count 4.69 3.80-5.11 10^6/uL Hemoglobin 15.1 11.5-16.0 g/dL Hematocrit 44 35-52 % Mean Corpuscular Volume 93 80-99 fL Mean Corpuscular Hemoglobin 32 25-34 pg Mean Corpuscular Hemoglobin Concent 35 32-36 g/dL Red Cell Distribution Width 12.9 10.0-14.5 % Platelet Count 307 130-400 10^3/uL Mean Platelet Volume 9.9 9.0-12.2 fL Immature Granulocyte % (Auto) 0 % Neutrophils (%) (Auto) 72 42-75 % Lymphocytes (%) (Auto) 16 12-44 % Monocytes (%) (Auto) 10 0-12 % Eosinophils (%) (Auto) 2 0-10 % Basophils (%) (Auto) 0 0-10 % Neutrophils # (Auto) 8.0 H 1.8-7.8 10^3/uL Lymphocytes # (Auto) 1.7 1.0-4.0 10^3/uL Monocytes # (Auto) 1.1 H 0.0-1.0 10^3/uL Eosinophils # (Auto) 0.2 0.0-0.3 10^3/uL Basophils # (Auto) 0.0 0.0-0.1 10^3/uL Immature Granulocyte # (Auto) 0.1 0.0-0.1 10^3/uL Prothrombin Time 12.9 12.2-14.7 SEC INR Comment 0.9 0.8-1.4 Activated Partial Thromboplast Time 28 24-35 SEC Sodium Level 139 135-145 MMOL/L Potassium Level 3.9 3.6-5.0 MMOL/L Chloride Level 100 98-107 MMOL/L Carbon Dioxide Level 24 21-32 MMOL/L Anion Gap 15 H 5-14 MMOL/L Blood Urea Nitrogen 17 7-18 MG/DL Creatinine 0.91 0.60-1.30 MG/DL Estimat Glomerular Filtration Rate 70 BUN/Creatinine Ratio 19 Glucose Level 124 H 70-105 MG/DL Calcium Level 10.4 H 8.5-10.1 MG/DL Corrected Calcium 10.2 H 8.5-10.1 MG/DL Total Bilirubin 0.8 0.1-1.0 MG/DL Aspartate Amino Transf (AST/SGOT) 32 5-34 U/L Alanine Aminotransferase (ALT/SGPT) 20 0-55 U/L Alkaline Phosphatase 79 40-136 U/L Total Protein 7.7 6.4-8.2 GM/DL Albumin 4.2 3.2-4.5 GM/DL TSH Centre Testing 2.50 0.35-4.94 UIU/ML Serum Alcohol < 10 <10 MG/DL Urine Color YELLOW Urine Clarity SL CLOUDY Urine pH 5.5 5-9 Urine Specific [place] 1.025 H 1.016-1.022 Urine Protein TRACE H NEGATIVE Urine Glucose (UA) NEGATIVE NEGATIVE Urine Ketones TRACE H NEGATIVE Urine Nitrite POSITIVE H NEGATIVE Urine Bilirubin NEGATIVE NEGATIVE Urine Urobilinogen 0.2 < = 1.0 MG/DL Urine Leukocyte Esterase 2+ H NEGATIVE Urine RBC (Auto) 1+ H NEGATIVE Urine RBC RARE /HPF Urine WBC >100 H /HPF Urine Squamous Epithelial Cells RARE /HPF Urine Crystals NONE /LPF Urine Bacteria NEGATIVE /HPF Urine Casts NONE /LPF Urine Mucus MODERATE H /LPF Urine Culture Indicated YES Urine Opiates Screen NEGATIVE NEGATIVE Urine Oxycodone Screen NEGATIVE NEGATIVE Urine Methadone Screen NEGATIVE NEGATIVE Urine Propoxyphene Screen NEGATIVE NEGATIVE Urine Barbiturates Screen NEGATIVE NEGATIVE Ur Tricyclic Antidepressants Screen NEGATIVE NEGATIVE Urine Phencyclidine Screen NEGATIVE NEGATIVE Urine Amphetamines Screen POSITIVE H NEGATIVE Urine Methamphetamines Screen POSITIVE H NEGATIVE Urine Benzodiazepines Screen NEGATIVE NEGATIVE Urine Cocaine Screen NEGATIVE NEGATIVE Urine Cannabinoids Screen NEGATIVE NEGATIVE My Orders Orders - NICHOL MARES MD Alcohol (08/14/22 22:23) Cbc With Automated Diff (08/14/22 22:23) Comprehensive Metabolic Panel (08/14/22 22:23) Drug Screen Stat (Urine) (08/14/22 22:23) Protime With Inr (08/14/22 22:23) Partial Thromboplastin Time (08/14/22 22:23) Thyroid Analyzer (08/14/22 22:23) Ua Culture If Indicated (08/14/22 22:23) Us Georgie Lower Ext [id number] (08/14/22 22:23) Lorazepam Tablet (Ativan Tablet) (08/14/22 22:30) Atenolol Tablet (Tenormin Tablet) (08/15/22 02:45) Lorazepam Tablet (Ativan Tablet) (08/15/22 02:45) Urine Culture (08/15/22 04:21) Lorazepam Tablet (Ativan Tablet) (08/15/22 05:30) Ceftriaxone 1 Gm Pre-Mix (Rocephin 1 Gm (08/15/22 05:25) Medications Given in ED Current Medications Medications Dose Ordered Sig/Flynn Route Start Time Stop Time Status Last Admin Dose Admin Lorazepam 0.5 mg ONCE ONCE BC 08/15/22 05:30 08/15/22 05:31 DC 08/15/22 05:31 0.5 MG Vital Signs/I&O 08/14/22 08/15/22 21:59 05:44 Temp 36.5 36.5 Pulse 98 71 Resp 22 18 B/P (MAP) 185/168 (174) 196/80 Pulse Ox 98 97 O2 Delivery Room Air Room Air Capillary Refill : Less Than 3 Seconds Blood Pressure Mean: 174 Progress Note : Progress Note There was immediate concern for vascular compromise to the lower extremities. Arterial ultrasounds were obtained. Monophasic blood flow was found throughout. There is no high velocity blood flow to suggest distal stenosis and no occlusion was noted. Patient reports this is a chronic condition. I stressed to her the importance of prompt follow-up to obtain angiography and possible vascular intervention with stenting or other interventions. Patient expressed understanding. Patient had labile hypertension. Initially I suspected alcohol withdraw, but patient was insistent that she did not consume alcohol on a daily basis. She did test positive for methamphetamine and did eventually admit to methamphetamine use. Most recent use was within the last couple of days. This does explain her labile hypertension and dystonic movements. Blood pressure did seem to respond well to Ativan. She received 3 oral doses of Ativan in the ER. She also received her usual atenolol dose. I was cautious about treating her hypertension as I did not want to drop her blood pressure in a manner that would decrease perfusion to her lower extremities. Patient was eventually discharged into the care of her and strongly encouraged to pursue close follow-up regarding her lower extremity vascular disease. Since patient insists that her lower extremity status is chronic and unchanged, and she demonstrated intact arterial flow on the ultrasound studies, she was allowed discharge to outpatient follow-up. Patient was additionally found to have urinary tract infection and was treated with Rocephin in the ER. Discharge instructions were reviewed with the patient multiple times before discharge. Diagnostic Imaging Diagonstic Imaging: Ultrasound Plain Films/CT/US/NM/MRI: leg Comments NAME: SABRINA STERN Ti MED REC#: [id number] PT STATUS: DEP ER : 1955 PHYSICIAN: NICHOL MARES MD ADMIT DATE: 08/14/22/ER Signed Date of Exam:08/14/22 US GEOR[place]IE LOWER EXT [id number] PROCEDURE: US Bilateral lower extremity arterial. TECHNIQUE: Multiple real-time grayscale images are obtained through both lower extremity arterial systems with color Doppler imaging and color Doppler spectral analysis. INDICATION: Ischemic limb. Cold feet bilaterally. COMPARISON: None. FINDINGS: Monophasic waveforms in the bilateral lower extremity arteries throughout. No focal abrupt elevation of peak systolic velocities to indicate high-grade stenosis in the lower extremities. IMPRESSION: Diffusely monophasic waveforms throughout both lower extremities suggesting a more proximal arterial stenosis. No arterial occlusion or focal high-grade narrowing in the lower extremities. Agree with preliminary interpretation. Dictated by: Dictated on workstation # [id number] Dict: 08/15/[id number] Trans: 08/15/22853 [facility] [id number] Interpreted by: YOSELIN BROWN MD Electronically signed by: YOSELIN BROWN MD 08/15/22 0854 Departure Impression Primary Impression: Labile hypertension Additional Impressions: Peripheral vascular disease Urinary tract infection Qualified Codes: N39.0 - Urinary tract infection, site not specified Methamphetamine abuse Disposition: HOME, SELF-CARE Condition: Improved Departure-Patient Inst. Decision time for Depature: 05:28 Referrals: DEBRA CALDERA MD (PCP/Family) Primary Care Physician Patient Instructions: Drug Abuse and Drug Addiction (DC), High Blood Pressure ED, Urinary Tract Infection, Adult ED Add. Discharge Instructions: Drink plenty of water to stay well-hydrated. Continue your blood pressure medications as previously prescribed. Call the clinic today to schedule follow-up appointment for further evaluation of your blood pressure. Do not use any methamphetamine or other illicit drug substances. This will cause wide variations in your blood pressure and anxiety. Use of methamphetamine and other illicit substances can cause severe health consequences. Some of these health consequences may be life-threatening. Complete your antibiotic as prescribed. Contact your primary care provider later in the week to review urine culture results to ensure you are on the best antibiotic for the type of infection you have. You have a very poor blood flow in your feet. It is very important that you follow-up with your primary care provider as soon as possible. You should have angiography performed of the arteries in your lower abdomen and legs to evaluate for narrowing in your arteries. Interventions such as stenting may be needed to improve your blood flow. Return to the emergency room if you have worsening symptoms despite following these instructions. All discharge instructions reviewed with patient and/or family. Voiced understanding. Scripts Cephalexin (Cephalexin) 500 Mg Tablet 500 MG PO TID, #20 TAB Prov: NICHOL MARES MD 08/15/22 Copy Copies To 1: DEBRA CALDERA MD, JOSHUA T MD Aug 14, 2022 22:28
[2022-08-14 22:29] LABS: BASOPHILS % (AUTO) 0 % (0-10); EOSINOPHILS # (AUTO) 0.2 10^3/uL (0.0-0.3); EOSINOPHILS % (AUTO) 2 % (0-10); HEMATOCRIT 44 % (35-52); HEMOGLOBIN 15.1 g/dL (11.5-16.0); LYMPHOCYTES # (AUTO) 1.7 10^3/uL (1.0-4.0); LYMPHOCYTES % (AUTO) 16 % (12-44); MEAN CORPUSCULAR HEMOGLOBIN 32 pg (25-34); MEAN CORPUSCULAR HGB CONC 35 g/dL (32-36); MEAN CORPUSCULAR VOLUME 93 fL (80-99); MEAN PLATELET VOLUME 9.9 fL (9.0-12.2); MONOCYTES # (AUTO) 1.1 10^3/uL (0.0-1.0); MONOCYTES % (AUTO) 10 % (0-12); NEUTROPHILS % (AUTO) 72 % (42-75); PLATELET COUNT 307 10^3/uL (130-400); WHITE BLOOD COUNT 11.2 10^3/uL (4.3-11.0)
[2022-08-14] MEDS ORDERED: LORazepam 0.5 MG (ATIVAN) TABLET BC ONE (22:30)
[2022-08-14 22:44] LABS: INR 0.9 (0.8-1.4); PROTHROMBIN TIME PATIENT 12.9 SEC (12.2-14.7)
[2022-08-14 22:51] LABS: ALANINE AMINOTRANSFERASE 20 U/L (0-55); ALBUMIN 4.2 GM/DL (3.2-4.5); ALKALINE PHOSPHATASE 79 U/L (40-136); BILIRUBIN,TOTAL 0.8 MG/DL (0.1-1.0); BUN/CREATININE RATIO 19; CALCIUM 10.4 MG/DL (8.5-10.1); CARBON DIOXIDE 24 MMOL/L (21-32); CHLORIDE 100 MMOL/L (98-107); CREATININE SERUM 0.91 MG/DL (0.60-1.30); GFR ESTIMATED 70; GLUCOSE 124 MG/DL (70-105); POTASSIUM 3.9 MMOL/L (3.6-5.0); SODIUM 139 MMOL/L (135-145); TOTAL PROTEIN 7.7 GM/DL (6.4-8.2)
[2022-08-15] MEDS ORDERED: ATENOLOL 25 MG (TENORMIN) TAB PO ONE (02:45)
[2022-08-15] MEDS ORDERED: LORazepam 0.5 MG (ATIVAN) TABLET BC ONE ×2 (02:45→05:30)
[2022-08-15 04:29] LABS: BILIRUBIN,URINE NEGATIVE (NEGATIVE); CLARITY,URINE SL CLOUDY; COLOR,URINE YELLOW; GLUCOSE, URINE (UA) NEGATIVE (NEGATIVE); KETONES,URINE TRACE (NEGATIVE); LEUKOCYTE ESTERASE ,URINE 2+ (NEGATIVE); NITRITE,URINE POSITIVE (NEGATIVE); PH,URINE 5.5 (5-9); PROTEIN,URINE TRACE (NEGATIVE)
[2022-08-15 04:46] LABS: AMPHETAMINE SCREEN, URINE POSITIVE (NEGATIVE); BENZODIAZEPINES SCREEN URINE NEGATIVE (NEGATIVE); COCAINE SCREEN URINE NEGATIVE (NEGATIVE)
[2022-08-15 04:47] LABS: BARBITURATE SCREEN URINE NEGATIVE (NEGATIVE); CANNABINOID SCREEN, URINE NEGATIVE (NEGATIVE); METHADONE STAT NEGATIVE (NEGATIVE); OPIATE SCREEN URINE NEGATIVE (NEGATIVE); OXYCODONE STAT NEGATIVE (NEGATIVE); PROPOXYPHENE STAT NEGATIVE (NEGATIVE); TRICYCLIC ANTIDEPRESSANTS SCRE NEGATIVE (NEGATIVE)
[2022-08-15 04:52] LABS: BACTERIA,URINE NEGATIVE /HPF; RBC,URINE RARE /HPF; SQUAMOUS EPITHELIAL CELL,UR RARE /HPF; WBC,URINE >100 /HPF
[2022-08-15] MEDS ORDERED: cefTRIAXone 1 GM PRE-MIX 50 ML IV STA (05:25)
[2022-08-15] MEDS ORDERED: CEPH500T PO (05:32)
[2022-08-15 05:44] VITALS: BP 196/80
--- NOTE | 2022-08-15 07:48 | Diagnostic Imaging Report ---
PROCEDURE: US Bilateral lower extremity arterial. TECHNIQUE: Multiple real-time grayscale images are obtained through both lower extremity arterial systems with color Doppler imaging and color Doppler spectral analysis. INDICATION: Ischemic limb. Cold feet bilaterally. COMPARISON: None. FINDINGS: Monophasic waveforms in the bilateral lower extremity arteries throughout. No focal abrupt elevation of peak systolic velocities to indicate high-grade stenosis in the lower extremities. IMPRESSION: Diffusely monophasic waveforms throughout both lower extremities suggesting a more proximal arterial stenosis. No arterial occlusion or focal high-grade narrowing in the lower extremities. Agree with preliminary interpretation. Dictated by: Dictated on workstation # [id number]
== END 2022-08-15 05:50 | disposition home or self-care (01) ==
LOC: EDUNIT# 21:57 → ER 22:00
DX: I10 Essential (primary) hypertension (principal); N39.0 Urinary tract infection, site not specified; E11.51 Type 2 diabetes mellitus with diabetic peripheral angiopathy without gangrene; F15.10 Other stimulant abuse, uncomplicated; F17.210 Nicotine dependence, cigarettes, uncomplicated
CPT/HCPCS: 80053; 80306; 81000; 84443; 85025; 85610; 85730; 87088; 93925; 99283; G0480; 36415; 80320

== ENCOUNTER → 2023-03-06 | Outpatient (CLI) | payer MEDICARE ==
[~2023-03-06] MED LIST changes: +CEPH500T PO
--- NOTE | 2023-03-06 14:51 | Diagnostic Imaging Report ---
INDICATION: Postmenopausal screening COMPARISON: Baseline FINDINGS: AP Spine L1-L4: [BMD (g/cm2): 1.476] [T-Score: 2.3] [Z-Score: 4.1] [BMD Previous: na] [BMD % Change: na] LT Hip Neck: [BMD (g/cm2): 0.898] [T-Score: -1.0] [Z-Score: 0.6] LT Hip Total: [BMD (g/cm2):0.988] [T-Score:-0.2] [Z-Score: 1.2] [BMD Previous: na] [BMD % Change: na] RT Hip Neck: [BMD (g/cm2):0.917] [T-Score:-0.9] [Z-Score:0.8] RT Hip Total: [BMD (g/cm2):1.006] [T-score:0.0] [Z-Score:1.4] [BMD Previous:na] [BMD % Change:na] *Indicates significant change from prior examination based on 95% confidence level. World Health Organization criteria for BMD interpretation classify patients as Normal (T-score at or above -1.0), Osteopenic (T-score between -1.0 and -2.5) or Osteoporotic (T-score at or below -2.5). LIMITATIONS AND MODIFICATION: None. FRACTURE RISK (FRAX SCORE): The ten year probability of (%): Major Osteoporotic Fracture: [na] Hip Fracture: [na] IMPRESSION: 1. Normal bone mineral density. 2. Baseline examination. 3. See below National Osteoporosis Foundation guidelines on when to potentially initiate pharmacologic therapy. Based on the National Osteoporosis Foundation Guidelines, pharmacologic treatment should be initiated in any of the following, unless clinical conditions suggest otherwise: * Any patient with prior fragility fracture of the hip or vertebrae. A spine fracture indicates 5X risk for subsequent spine fracture and 2X risk for subsequent hip fracture. * Osteoporosis (T-score <-2.5). * Postmenopausal women and men age 50 and older with low bone mass/osteopenia (T-score between -1.0 and -2.5) by DXA and 10-year major osteoporotic fracture greater than 20% or a 10-year probability of hip fracture greater than 3%. These fracture risks are supplied above in the FRAX score, if applicable. * Clinician judgement and/or patient preferences may indicate treatment for people with 10-year fracture probabilities above or below these levels. Dictated by: Dictated on workstation # [id number]
== END ==
LOC: RAD 12:39
PROVIDERS: ATTEND Pediatrics
DX: Z78.0 Asymptomatic menopausal state (principal)
CPT/HCPCS: 77080